=== PATIENT | male | born 2000 | race Caucasian/White ===

== ENCOUNTER → 2024-06-09 11:14 | Outpatient (REF) | payer OTHER, SELFPAY | LOC: HWRAD 11:14 | PROVIDERS: ATTENDING PHYSICIAN Family Medicine | DX: M79.672 Pain in left foot (principal) | CPT/HCPCS: 73630 ==

== ENCOUNTER 2025-08-08 17:16 | Emergency (ER) | payer OTHER, SELFPAY ==
[2025-08-08 17:20] VITALS: BP 148/100
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
== END 2025-08-08 18:52 | disposition home or self-care (01) ==
LOC: EMR 17:16
PROVIDERS: EMERGENCY PHYSICIAN Emergency Medicine; FAMILY PHYSICIAN Family Medicine
DX: Z04.1 Encounter for examination and observation following transport accident (principal); V59.9XXA Occupant (driver) (passenger) of pick-up truck or van injured in unspecified traffic accident, initial encounter; Y92.410 Unspecified street and highway as the place of occurrence of the external cause
CPT/HCPCS: 99281